=== PATIENT | male | born 1975 | race American Indian/Alaskan Native ===

== ENCOUNTER 2021-08-15 21:48 | Emergency (ER) | payer OTHER ==
[2021-08-15 22:05] VITALS: BP 145/97
[2021-08-15] MEDS ORDERED: MORPHINE 4 MG/1 ML INJ IV ONE (23:06)
[2021-08-15] MEDS ORDERED: SODIUM CHLORIDE 0.9% 1000 ML 1,000 ML IV ONE (23:06)
[2021-08-15] MEDS ORDERED: ONDANSETRON 4 MG/2 ML INJ IV ONE (23:06)
--- NOTE | 2021-08-15 23:10 | Emergency Department Report ---
HPI - General Chief Complaint: Abdominal Pain Time Seen by Provider: 08/15/21 23:01 - HPI HPI: 46-year-old -[place] male presents to the emergency department with a 3- day history of progressively worsening left-sided flank and abdominal pain. The patient says he has not had a bowel movement in the past 3 days and the bowel movements previous to this were not satisfying. Otherwise he denies any past medical history. He has nausea without vomiting. He denies any fever, dysuria, penile discharge, chest pain, back pain, shortness of breath. He has not taken anything for symptoms prior to presentation today. His abdominal pain is 10 out of 10 in intensity. No known aggravating or alleviating factors. ED Past Medical Hx - Past Medical History Previous Medical History?: No - Surgical History Past Surgical History?: No - Medications Home Medications: Home Medications Medication Instructions Recorded Confirmed Last Taken Type Docusate Sodium [Colace] 100 mg PO BID PRN #20 capsule 08/16/21 Unknown Rx Famotidine [Pepcid] 20 mg PO BID #20 tablet 08/16/21 Unknown Rx Omeprazole 20 mg PO QDAY #20 capsule. 08/16/21 Unknown Rx levoFLOXacin [Levaquin] 750 mg PO QDAY #7 tablet 08/16/21 Unknown Rx ED Review of Systems ROS: Stated complaint: PAIN IN SIDE Other details as noted in HPI Comment: All other systems reviewed and negative Constitutional: denies: chills, fever Eyes: denies: eye pain, vision change ENT: denies: ear pain, throat pain Respiratory: denies: cough, shortness of breath Cardiovascular: denies: chest pain, palpitations Gastrointestinal: abdominal pain, nausea, constipation. denies: vomiting Genitourinary: denies: dysuria, discharge Musculoskeletal: denies: back pain, arthralgia Skin: denies: rash, lesions Neurological: denies: headache, weakness Physical Exam - Physical Exam Vital Signs: Vital Signs 08/15/21 22:01 Temperature 98.9 F Pulse Rate 66 Respiratory 18 Rate Blood Pressure 145/97 O2 Sat by Pulse 99 Oximetry Physical Exam: GENERAL: The patient is well-developed well-nourished. HENT: Normocephalic. Atraumatic. Patient has moist mucous membranes. EYES: Extraocular motions are intact. NECK: Supple. Trachea is midline. CHEST/LUNGS: Clear to auscultation. There is no respiratory distress noted. HEART/CARDIOVASCULAR: Regular. There is no tachycardia. There is no murmur. ABDOMEN: Abdomen is soft. Moderate left-sided abdominal tenderness to palpation. Mild right lower quadrant abdominal tenderness to palpation. No guarding. Patient has normal bowel sounds. SKIN: Skin is warm and dry. NEURO: The patient is awake, alert, and oriented. The patient is cooperative. The patient has no focal neurologic deficits. Normal speech. MUSCULOSKELETAL: There is no tenderness or deformity. There is no limitation range of motion. No CVA tenderness to palpation. ED Course Vital Signs 08/15/21 22:01 Temperature 98.9 F Pulse Rate 66 Respiratory 18 Rate Blood Pressure 145/97 O2 Sat by Pulse 99 Oximetry ED Medical Decision Making - Lab Data Result diagrams: 08/15/21 23:11 08/15/21 23:11 Lab Results 08/15/21 08/15/21 Range/Units 23:11 23:11 WBC 17.0 H (4.5-11.0) K/mm3 RBC 5.36 H (3.65-5.03) M/mm3 Hgb 15.4 H (11.8-15.2) gm/dl Hct 46.5 H (35.5-45.6) % MCV 87 (84-94) fl MCH 29 (28-32) pg MCHC 33 (32-34) % RDW 13.6 (13.2-15.2) % Plt Count 231 (140-440) K/mm3 Lymph % (Auto) 8.1 L (13.4-35.0) % [place] % (Auto) 7.8 H (0.0-7.3) % Eos % (Auto) 0.0 (0.0-4.3) % Baso % (Auto) 0.1 (0.0-1.8) % Lymph # (Auto) 1.4 (1.2-5.4) K/mm3 [place] # (Auto) 1.3 H (0.0-0.8) K/mm3 Eos # (Auto) 0.0 (0.0-0.4) K/mm3 Baso # (Auto) 0.0 (0.0-0.1) K/mm3 Seg Neutrophils % 84.0 H (40.0-70.0) % Seg Neutrophils # 14.3 H (1.8-7.7) K/mm3 Sodium 131 L (137-145) mmol/L Potassium 3.6 (3.6-5.0) mmol/L Chloride 88.2 L (98-107) mmol/L Carbon Dioxide 27 (22-30) mmol/L Anion Gap 19 mmol/L BUN 14 (9-20) mg/dL Creatinine 0.9 (0.8-1.3) mg/dL Estimated GFR > 60 ml/min BUN/Creatinine Ratio 16 % Glucose 132 H (75-100) mg/dL Calcium 10.9 H (8.4-10.2) mg/dL Total Bilirubin 1.50 H (0.1-1.2) mg/dL Direct Bilirubin 0.3 H (0-0.2) mg/dL Indirect Bilirubin 1.2 mg/dL AST 15 (5-40) units/L ALT 20 (7-56) units/L Alkaline Phosphatase 105 (35-129) units/L Total Protein 7.6 (6.3-8.2) g/dL Albumin 4.7 (3.9-5) g/dL Albumin/Globulin Ratio 1.6 % Lipase 20 (13-60) units/L - Radiology Data Radiology results: report reviewed, image reviewed interpreted by me: Abdominal x-ray shows nonspecific nonobstructive bowel gas. No free air. CT ABDOMEN AND PELVIS WITH IV CONTRAST INDICATION: Abd pain. COMPARISON: None available. TECHNIQUE: Axial CT images were obtained through the abdomen and pelvis after 100 mL Omnipaque [address] scans at this location are performed using CT dose reduction for ALARA by means of automated exposure control. FINDINGS -- ABDOMEN: Lung Bases: Prominent mucosal thickening of the distal thoracic esophagus. Liver: Normal. Gallbladder: Normal. Bile Ducts: Normal. Pancreas: Small amount of fluid/inflammation seen near the pancreatic head. Spleen: Normal. Adrenals: Normal. Right Kidney and Proximal Ureter: Normal. Left Kidney and Proximal Ureter: Normal. Stomach and Bowel: Fluid distended stomach. There is prominent thickening and edema identified near the junction of the proximal duodenum/gastric antrum.. Prominent mucosal thickening and irregularity involving the proximal small bowel just beyond the duodenum. Lymph Nodes: No significant adenopathy. Aorta: No significant abnormality. IVC: Normal. Additional Findings: None. FINDINGS -- PELVIS: Urinary Bladder and Distal Ureters: Normal. Reproductive Organs: No acute abnormality. Appendix: Normal. Bowel: No acute abnormality. Few colonic diverticula. Free Fluid: None. Lymph Nodes: No significant adenopathy. Additional Findings: None. Skeletal System: No acute abnormality. IMPRESSION: 1. Prominent thickening and edema identified near the distal gastric antrum/proximal duodenum. There is also some inflammation near the pancreatic head. Ultimately this appears most consistent with duodenitis/gastritis. Underlying duodenal ulcer cannot be excluded given the degree of inflammation this region. No free air identified to suggest perforation at this time. 2. Prominent esophagitis of the distal thoracic esophagus. 3. Mild peripancreatic edema near the pancreatic head could be secondary to underlying duodenal inflammatory process however acute pancreatitis could have a similar appearance. Clinical correlation suggested. 4. Mild enteritis of the proximal small bowel. - Medical Decision Making This patient presents with a 3-day history of left-sided abdominal and flank pain. On examination he does have some reproducible abdominal tenderness to palpation, but no guarding and no CVA tenderness. Patient's labs shows a leukocytosis of 17,000, some mild hyperchloremia, and mild hyponatremia. Abdominal x-ray shows nonspecific nonobstructive bowel gas. Patient had a CT scan of the abdomen and pelvis that shows distal esophagitis, gastritis around the antrum, and duodenitis, as well as some enteritis. The patient initially had some IV analgesia with transient relief. It was after the GI cocktail of Maalox and lidocaine, as well as Pepcid, that the patient got significant relief. This appears consistent with the CT scan findings. The patient will be discharged home to follow-up with primary care and gastroenterology. We discussed staying away from foods that are acidic, tobacco use, alcohol use. The patient will be given a prescription for Pepcid, a PPI, and antibiotic, and the patient requested a stool softener. Vital signs have been reassuring throughout his ED course including being afebrile. He will return to the emergency department with any worsening of his symptoms or with any acute distress. Critical Care Time: No Critical care attestation.: If time is entered above; I have spent that time in minutes in the direct care of this critically ill patient, excluding procedure time. ED Disposition Clinical Impression: Esophagitis, Gastritis and duodenitis, Abdominal pain Disposition: 01 HOME / SELF CARE / HOMELESS Is pt being admited?: No Condition: Stable Instructions: Esophagitis, Gastritis, Adult, Duodenitis Additional Instructions: Please follow-up with a primary care physician in the next few days. I have given you a referral for a local primary care physician, Dr. Wyman, and a primary care clinic, [facility]. I am giving you a referral for a local gastroenterology group, [facility], to follow-up regarding your abdominal pain, esophagitis, gastritis, and duodenitis. Please avoid foods that are acidic, alcohol, tobacco, caffeinated products. Please wait at least 30 minutes after eating before laying down flat. Take all medications as prescribed. Return to the emergency department with any worsening of your symptoms, new or concerning symptoms not addressed during this current emergency department visit, or with any acute distress. Prescriptions: Docusate Sodium [Colace] 100 mg PO BID PRN #20 capsule PRN Reason: Constipation levoFLOXacin [Levaquin] 750 mg PO QDAY #7 tablet Omeprazole 20 mg PO QDAY #20 capsule. Famotidine [Pepcid] 20 mg PO BID #20 tablet Referrals: SHAMA WYMAN MD [Staff Physician] - 3-5 Days [facility] [Provider Group] - 3-5 Days [facility] [Provider Group] - 3-5 Days Time of Disposition: 03:27
[2021-08-15 23:57] LABS: Alanine Aminotransferase 20 units/L (7-56); Albumin 4.7 g/dL (3.9-5); BUN/Creatinine Ratio 16; Basophils % (Auto) 0.1 % (0.0-1.8); Bilirubin,Direct 0.3 mg/dL (0-0.2); Blood Urea Nitrogen 14 mg/dL (9-20); Calcium 10.9 mg/dL (8.4-10.2); Hematocrit 46.5 % (35.5-45.6); Hemoglobin 15.4 gm/dl (11.8-15.2); Hemolysis Index 11; Lymphocytes # (Auto) 1.4 K/mm3 (1.2-5.4); Lymphocytes % (Auto) 8.1 % (13.4-35.0); Mean Corpuscular HGB Conc 33 % (32-34); Mean Corpuscular Volume 87 fl (84-94); Monocytes # (Auto) 1.3 K/mm3 (0.0-0.8); Monocytes % (Auto) 7.8 % (0.0-7.3); Platelet Count 231 K/mm3 (140-440); Red Blood Count 5.36 M/mm3 (3.65-5.03); Red Cell Distribution Width 13.6 % (13.2-15.2)
--- NOTE | 2021-08-16 00:15 | XRay Report ---
ABDOMEN 2 VIEW(S) INDICATION / CLINICAL INFORMATION: Abd pain. COMPARISON: None available. FINDINGS: TUBES / LINES: None. BOWEL GAS PATTERN: No significant abnormality. FREE AIR / EXTRALUMINAL GAS: None seen. ADDITIONAL FINDINGS: No significant additional findings. IMPRESSION: 1. No significant abnormality. Signer Name: Darian Wang MD Signed: 08/16/2021 12:11 AM Workstation Name: [id number]
--- NOTE | 2021-08-16 01:29 | Cat Scan Report ---
CT ABDOMEN AND PELVIS WITH IV CONTRAST INDICATION: Abd pain. COMPARISON: None available. TECHNIQUE: Axial CT images were obtained through the abdomen and pelvis after 100 mL Omnipaque [address] scans at this location are performed using CT dose reduction for ALARA by means of automated e xposure control. FINDINGS -- ABDOMEN: Lung Bases: Prominent mucosal thickening of the distal thoracic esophagus. Liver: Normal. Gallbladder: Normal. Bile Ducts: Normal. Pancreas: Small amount of fluid/inflammation seen near the pancreatic head. Spleen: Normal. Adrenals: Normal. Right Kidney and Proximal Ureter: Normal. Left Kidney and Proximal Ureter: Normal. Stomach and Bowel: Fluid distended stomach. There is prominent thickening and edema identified near t he junction of the proximal duodenum/gastric antrum.. Prominent mucosal thickening and irregularity i nvolving the proximal small bowel just beyond the duodenum. Lymph Nodes: No significant adenopathy. Aorta: No significant abnormality. IVC: Normal. Additional Findings: None. FINDINGS -- PELVIS: Urinary Bladder and Distal Ureters: Normal. Reproductive Organs: No acute abnormality. Appendix: Normal. Bowel: No acute abnormality. Few colonic diverticula. Free Fluid: None. Lymph Nodes: No significant adenopathy. Additional Findings: None. Skeletal System: No acute abnormality. IMPRESSION: 1. Prominent thickening and edema identified near the distal gastric antrum/proximal duodenum. There is also some inflammation near the pancreatic head. Ultimately this appears most consistent with duod enitis/gastritis. Underlying duodenal ulcer cannot be excluded given the degree of inflammation this region. No free air identified to suggest perforation at this time. 2. Prominent esophagitis of the distal thoracic esophagus. 3. Mild peripancreatic edema near the pancreatic head could be secondary to underlying duodenal infla mmatory process however acute pancreatitis could have a similar appearance. Clinical correlation esme ram. 4. Mild enteritis of the proximal small bowel. Signer Name: Darian Wang MD Signed: 08/16/2021 1:25 AM Workstation Name: [id number]
[2021-08-16] MEDS ORDERED: ALUM-MAG HYDROXIDE-SIMETHICONE 200-200-20MG/5ML ORAL LIQD 30 ML PO ONE (01:43)
[2021-08-16] MEDS ORDERED: LIDOCAINE VISCOUS 2% 15 ML ORAL LIQD PO ONE (01:43)
[2021-08-16] MEDS ORDERED: MORPHINE 4 MG/1 ML INJ IV ONE (01:44)
[2021-08-16] MEDS ORDERED: FAMOTIDINE 20 MG/2 ML INJ IV ONE (01:44)
== END 2021-08-16 03:51 | disposition home or self-care (01) ==
LOC: ED 21:48
DX: R10.9 Unspecified abdominal pain (principal); K20.90 Esophagitis, unspecified without bleeding; K29.70 Gastritis, unspecified, without bleeding; K29.80 Duodenitis without bleeding
CPT/HCPCS: 36415; 74019; 74177; 80048; 80076; 83690; 85025; J2270; J2405; J7030; Q9967

== ENCOUNTER 2021-08-16 22:09 | Emergency (ER) | payer OTHER ==
[2021-08-16] MEDS ORDERED: ALUM-MAG HYDROXIDE-SIMETHICONE 200-200-20MG/5ML ORAL LIQD 30 ML PO ONE (23:55)
[2021-08-16] MEDS ORDERED: LIDOCAINE VISCOUS 2% 15 ML ORAL LIQD PO ONE (23:55)
[2021-08-16] MEDS ORDERED: FAMOTIDINE 20 MG/2 ML INJ IV ONE (23:55)
[2021-08-16] MEDS ORDERED: MORPHINE 4 MG/1 ML INJ IV ONE (23:55)
[2021-08-17 00:24] LABS: Basophils % (Auto) 0.4 % (0.0-1.8); Eosinophils % (Auto) 0.2 % (0.0-4.3); Hematocrit 43.3 % (35.5-45.6); Hemoglobin 14.5 gm/dl (11.8-15.2); Lymphocytes # (Auto) 1.5 K/mm3 (1.2-5.4); Lymphocytes % (Auto) 13.6 % (13.4-35.0); Mean Corpuscular HGB Conc 34 % (32-34); Mean Corpuscular Volume 86 fl (84-94); Monocytes # (Auto) 1.1 K/mm3 (0.0-0.8); Monocytes % (Auto) 10.1 % (0.0-7.3); Platelet Count 208 K/mm3 (140-440); Red Blood Count 5.04 M/mm3 (3.65-5.03); Red Cell Distribution Width 13.4 % (13.2-15.2)
[2021-08-17 00:42] LABS: Alanine Aminotransferase 16 units/L (7-56); Albumin 4.2 g/dL (3.9-5); BUN/Creatinine Ratio 11; Blood Urea Nitrogen 11 mg/dL (9-20); Calcium 9.3 mg/dL (8.4-10.2); Hemolysis Index 14
[2021-08-17 02:45] LABS: Bilirubin,Urine NEG (Negative); Blood,Urine NEG (Negative); Color,Urine Yellow (Yellow); Mucus,Urine 1+ /HPF; Urobilinogen,Urine < 2.0 mg/dL (<2.0)
--- NOTE | 2021-08-17 03:18 | Emergency Department Report ---
ED Abdominal Pain HPI - General Chief Complaint: Abdominal Pain Stated Complaint: ABDOMINAL PAIN LT SIDE Source: patient Mode of arrival: Ambulatory Limitations: No Limitations - History of Present Illness Initial Comments: Patient is a 46-year-old -[place] male with a history of GERD who presents to the ED with persistent epigastric pain with nausea and vomiting for the last 1 week. Patient states that he was initially evaluated in this ED 24 hours ago and treated for GERD, esophagitis, gastritis and duodenitis. Patient states that she he was given prescriptions to take at home but has not taken any because he did not know what each medicine was meant to treat. Patient therefore states that his epigastric pain has been persistent and he has not been able to eat anything because of persistent epigastric pain. Patient denies dizziness, syncope, fever, chills, chest pain, shortness of breath, diarrhea, dysuria, urinary frequency and urgency, cough or sore throat. MD Complaint: abdominal pain (epigastric) -: Sudden, week(s) (1) Location: epigastric Radiation: epigastric Migration to: no migration Severity scale (0 -10): 6 Quality: aching, sharp, burning Consistency: constant Improves With: nothing Worsens With: eating, vomiting Associated Symptoms: denies other symptoms, nausea, vomiting, anorexia. denies: diarrhea, fever, chills, constipation, dysuria, hematemesis, hematochezia, melena, hematuria, syncope, other - Related Data Previous Rx's Medication Instructions Recorded Last Taken Type Docusate Sodium [Colace] 100 mg PO BID PRN #20 capsule 08/16/21 Unknown Rx Famotidine [Pepcid] 20 mg PO BID #20 tablet 08/16/21 Unknown Rx Omeprazole 20 mg PO QDAY #20 capsule.dr 08/16/21 Unknown Rx levoFLOXacin [Levaquin] 750 mg PO QDAY #7 tablet 08/16/21 Unknown Rx Dicyclomine [Bentyl] 20 mg PO Q6H PRN #20 tablet 08/17/21 Unknown Rx Ondansetron [Zofran Odt] 4 mg PO Q6HR PRN #15 tab.rapdis 08/17/21 Unknown Rx Allergies Allergy/AdvReac Type Severity Reaction Status Date / Time No Known Allergies Allergy Verified 08/16/21 23:26 ED Review of Systems ROS: Stated complaint: ABDOMINAL PAIN LT SIDE Other details as noted in HPI Constitutional: denies: chills, fever Eyes: denies: eye pain, eye discharge, vision change ENT: denies: ear pain, throat pain Respiratory: denies: cough, shortness of breath, wheezing Cardiovascular: denies: chest pain, palpitations Endocrine: no symptoms reported Gastrointestinal: abdominal pain (epigastric), nausea, vomiting. denies: diarrhea Genitourinary: denies: urgency, dysuria Musculoskeletal: denies: back pain, joint swelling, arthralgia Skin: denies: rash, lesions Neurological: denies: headache, weakness, paresthesias Psychiatric: denies: anxiety, depression Hematological/Lymphatic: denies: easy bleeding, easy bruising ED Past Medical Hx - Past Medical History Previous Medical History?: Yes Hx GERD: Yes - Surgical History Past Surgical History?: No - Social History Smoking Status: Never Smoker Substance Use Type: None - Medications Home Medications: Home Medications Medication Instructions Recorded Confirmed Last Taken Type Docusate Sodium [Colace] 100 mg PO BID PRN #20 capsule 08/16/21 Unknown Rx Famotidine [Pepcid] 20 mg PO BID #20 tablet 08/16/21 Unknown Rx Omeprazole 20 mg PO QDAY #20 capsule.dr 08/16/21 Unknown Rx levoFLOXacin [Levaquin] 750 mg PO QDAY #7 tablet 08/16/21 Unknown Rx Dicyclomine [Bentyl] 20 mg PO Q6H PRN #20 tablet 08/17/21 Unknown Rx Ondansetron [Zofran Odt] 4 mg PO Q6HR PRN #15 tab.rapdis 08/17/21 Unknown Rx ED Physical Exam - General Limitations: No Limitations General appearance: alert, in no apparent distress - Head Head exam: Present: atraumatic, normocephalic, normal inspection - Eye Eye exam: Present: normal appearance, PERRL, EOMI Pupils: Present: normal accommodation - ENT ENT exam: Present: normal exam, normal orophraynx, mucous membranes moist, TM's normal bilaterally, normal external ear exam - Neck Neck exam: Present: normal inspection, full ROM. Absent: tenderness - Respiratory Respiratory exam: Present: normal lung sounds bilaterally. Absent: respiratory distress, wheezes, rales, rhonchi, chest wall tenderness, accessory muscle use, decreased breath sounds, prolonged expiratory - Cardiovascular Cardiovascular Exam: Present: regular rate, normal rhythm, normal heart sounds. Absent: systolic murmur, diastolic murmur, rubs, gallop - GI/Abdominal GI/Abdominal exam: Present: soft, tenderness (Palpable mild epigastric tenderness), normal bowel sounds. Absent: guarding, rebound, hyperactive bowel sounds, hypoactive bowel sounds, organomegaly - Extremities Exam Extremities exam: Present: normal inspection, full ROM, normal capillary refill - Back Exam Back exam: Present: normal inspection, full ROM. Absent: tenderness, CVA tenderness (R), CVA tenderness (L), muscle spasm, paraspinal tenderness, vertebral tenderness - Neurological Exam Neurological exam: Present: alert, oriented X3, CN II-XII intact, normal gait, reflexes normal - Psychiatric Psychiatric exam: Present: normal affect, normal mood - Skin Skin exam: Present: warm, dry, intact, normal color. Absent: rash ED Course Vital Signs 08/16/21 08/17/21 23:21 03:31 Temperature 98.9 F Pulse Rate 68 58 L Respiratory 16 16 Rate Blood Pressure 120/92 O2 Sat by Pulse 98 98 Oximetry ED Medical Decision Making - Lab Data Result diagrams: 08/17/21 00:07 08/17/21 00:07 - Medical Decision Making This is a 46-year-old -[place] male with a history of GERD who presents to the ED with persistent epigastric pain with nausea and vomiting for the last 1 week. Patient states that he was initially evaluated in this ED 24 hours ago and treated for GERD, esophagitis, gastritis and duodenitis. Patient states that she he was given prescriptions to take at home but has not taken any because he did not know what each medicine was meant to treat. Patient therefore states that his epigastric pain has been persistent and he has not been able to eat anything because of persistent epigastric pain. In the ED, patient is alert and oriented x3 and is not in any distress. Patient was treated for nausea and vomiting, also treated with antacids and pain medications. Lab test results were reviewed and have significantly improved from 24 hours ago when the patient had acute leukocytosis of 17,000 but is currently 11,200. The rest of the lab test results are nonactionable. On reevaluation, patient's pain is well controlled medications. Patient was advised to take the previously prescribed medications which included antacids as well as antibiotics for suspected enteritis or duodenitis. Patient was advised to follow-up with his primary care physician in 5 to 7 days for reevaluation. Patient was also advised return to the ED immediately if symptoms get worse. - Differential Diagnosis Gastritis; gastroenteritis; duodenitis; esophagitis; GERD Critical care attestation.: If time is entered above; I have spent that time in minutes in the direct care of this critically ill patient, excluding procedure time. ED Disposition Clinical Impression: Gastritis and duodenitis, Esophagitis Abdominal pain Qualifiers: Abdominal location: epigastric Qualified Code(s): R10.13 - Epigastric pain GERD (gastroesophageal reflux disease) Qualifiers: Esophagitis presence: esophagitis presence not specified Qualified Code(s): K21.9 - Gastro-esophageal reflux disease without esophagitis Disposition: HOME / SELF CARE / HOMELESS Is pt being admited?: No Does the pt Need Aspirin: No Condition: Stable Instructions: Gastritis, Adult, [id number], Peptic Ulcer, [id number], Heartburn, [id number], Duodenitis, Gastroesophageal Reflux Disease, Adult, [id number] Additional Instructions: All lab test results were reviewed and are all nonactionable. Therefore take the medications that were previously prescribed for you, drink plenty of fluids and follow-up with your primary care physician in 5 to 7 days for reevaluation. Return to the ED immediately if symptoms get worse. Prescriptions: Dicyclomine [Bentyl] 20 mg PO Q6H PRN #20 tablet PRN Reason: Abdominal pain Ondansetron [Zofran Odt] 4 mg PO Q6HR PRN #15 tab.rapdis PRN Reason: Nausea Referrals: [facility] [Provider Group] - 3-5 Days Time of Disposition: 03:17 Print Language: MONEGASQUE
[2021-08-17 03:53] VITALS: BP 120/92
== END 2021-08-17 03:34 | disposition home or self-care (01) ==
LOC: ED 22:09
DX: K21.00 Gastro-esophageal reflux disease with esophagitis, without bleeding (principal); K29.70 Gastritis, unspecified, without bleeding; K29.80 Duodenitis without bleeding
CPT/HCPCS: 36415; 74019; 74177; 80048; 80053; 80076; 81001; 83690; 85025; 96374; 96375; 99283; J2270; J2405; J7030; Q9967